=== PATIENT | male | born 1980 | race Caucasian/White ===

== ENCOUNTER 2021-11-25 11:55 | Emergency (ER) | payer MEDICAID, SELFPAY ==
[2021-11-25 11:55] VITALS: BP 160/108; PULSE 101; RESP 16; TEMP 35.9; O2SAT 98; BMI 44.6
--- NOTE | 2021-11-25 12:46 | EDS_ITS ---
HPI History of Present Illness Chief Complaint: Abscess Informant: patient Onset/Context/Timing Onset: Days (3) Context: Gradual Onset Timing: Continuous Quality: sore Location: left prox inner thigh Current Severity: Severe Maximum Severity: Severe Worsened by: sitting, palpation Relieved by: nothing Associated Symptoms Associated Symptoms: occ drainage, foul-smelling; no systemic sx Narrative Narrative: Patient with a tender swollen abscess that has been growing just for 3 days in his left proximal thigh, extremely tender and he has tried to pop it on his own but is unable. Never had these before. Healthy otherwise. No systemic symptoms or fevers. [facility] Medical History (Updated 11/25/21 @ 15:[address] MD) Hypertension Medical History no medical history no medical history Home Medications hydrocodone-acetaminophen 5-325mg 5mg-325mg 1 tab PO Q4H PRN PRN Pain 2 days #8 TABLETS 11/25/21 [Rx Last Taken Unknown] sulfamethoxazole 800 mg-trimethoprim 160 mg tablet 1 tab PO BID #20 TABLETS 11/25/21 [Rx Last Taken Unknown] Allergy/AdvReac Type Severity Reaction Status Date / Time Penicillins Allergy Hives Verified 11/25/21 11:58 Social History Smoking Status: Current every day smoker tobacco type: cigarettes ROS ROS ED Constitutional Constitutional ED: Denies chills or fever(s) Eyes Eyes: Denies change in vision or diplopia ENT ENT ED: Denies rhinorrhea or sore throat Cardiovascular Cardiovascular: Denies chest pain or palpitations Respiratory/Chest Respiratory/Chest: Denies cough or dyspnea Gastrointestinal Gastrointestinal: Denies abdominal pain, diarrhea, nausea or vomiting Genitourinary Genitourinary ED: Denies dysuria or hematuria Musculoskeletal Musculoskeletal: Denies back pain or neck pain Integumentary Reports abscess; Denies rash Neurologic Neurologic: Denies headache(s), paresthesias or weakness Psychiatric Psychiatric: Denies anxiety or suicidal thoughts EXAM Physical Exam Const Vital Signs: 11/25/21 11:55 11/25/21 13:03 11/25/21 13:03 Temperature 96.6 F L 97.9 F Temperature Source Temporal Pulse Rate 101 H 77 76 Respiratory Rate 16 16 16 Blood Pressure 160/108 H 131/89 H 131/89 H Blood Pressure Mean 125 103 Pulse Ox 98 95 96 Oxygen Delivery Method Room Air Room Air Room Air Positive well nourished and well developed General Appearance ED: well developed and NAD HEENT Reports moist mucous membranes normocephalic and atraumatic Eyes PERRL and EOMs intact bilaterally Neck full ROM and supple Resp normal respiratory effort and clear to auscultation bilaterally Cardio regular rate, regular rhythm and no murmurs GI non-tender and non-distended Auscultation: normoactive bowel sounds Palpation: soft Back/Spine no CVA tenderness General Back: other FROM Extremity normal to inspection General Extremety ED: Negative for edema, pulses abnormal or tenderness General Extremity: Negative for edema or pulses abnormal Neuro oriented x3, CN's II-XII intact bilaterally and no sensory deficits noted Sensorium / Orientation: awake and alert Motor Exam: strength 5/5 throughout Skin no rashes or lesions noted Skin Narrative: Large 10 cm diameter abscess left proximal medial thigh that does not involve the groin or scrotum, surrounding erythema, pointing, no spontaneous drainage at this time, extremely tender to palpation. MDM MDM MDM Narrative Medical decision making narrative: Patient wanted procedural sedation which I think is entirely reasonable given the size and location of this abscess. See the procedure note, this was uncomplicated, we obtained an excellent drainage, highly suspicious for MRSA given that this is only been 2 or 3 days and it was extremely large including the abscess cavity. He was started on Bactrim here and will be discharged with a prescription for that and something for pain, instructions to remove the gauze in 48 hours and return if worsening. He is comfortable with that plan. Procedures Procedural Sedation 1 (Initial Baseline): Consent Signed: Yes Any Problems With Anesthesia: No You/Your family experience fever (hyperthermia) w/anesthesia: No Sedation medication: Propofol Dose: 240 Route: IV Total Moderate Sedation Units: 15 Mallampati Score: Class III ASA Classification: I Comment:: Good sedation achieved, no complications tolerated well, monitored with end- tidal CO2, IV fluids, and oxygen throughout the procedure. Other Procedures Procedure(s): Complex incision and drainage abscess left buttock/thigh: Locally anesthetized with 3 cc of 1% plain lidocaine after procedural sedation started, prepped with chlorhexidine and isopropanol, incised centrally with a #11 blade, large amount of bloody purulent foul-smelling fluid expressed and suctioned, deloculated the cavity extensively, irrigated the cavity with saline, and packed with quarter inch gauze. Dressed with gauze, tolerated well under procedural sedation no complications. Discharge Plan Triage Chief Complaint: Abscess ED Provider: Julian Lane Dx/Rx/DC Orders Clinical Impression: Abscess and cellulitis of gluteal region Instructions: ED Abscess Incision And Drainage Prescriptions: New hydrocodone-acetaminophen [hydrocodone-acetaminophen] 5-325 mg tablet 1 tab PO Q4H PRN PRN (Reason: Pain) 2 Days Qty: 8 0RF sulfamethoxazole-trimethoprim [sulfamethoxazole-trimethoprim] 800-160 mg tablet 1 tab PO BID Qty: 20 0RF Primary Care Provider: Care Physician,No Primary Referrals: Osbaldo Peres MD [Med Staff - Active Staff] - 1 Week if not improving Care Physician,No Primary [Primary Care Provider] - Activity Restrictions/Additional Instructions: Dressing changes as needed, you cannot change dressing too much in order to cont inue drawing drainage out of the abscess. After about 48 hours, pull the wick out in its entirety and discard it. Afterwards, continue to do dressing changes until there is no bleeding or discharge. Take the antibiotics until they are completely gone, which should help to heal the rest of it. You may still feel a knot underneath the skin but the redness and pain should eventually resolve. Disposition Disposition: Home, Self Care
[2021-11-25] MEDS: Lidocaine 1% (20 ml mdv) 20 ML Vial INFILT (13:00)
[2021-11-25] MEDS: Propofol 200 MG/20 ML Vial IV BOLUS (13:00)
[2021-11-25] MEDS: Morphine 4 MG/ML Syringe IV ×2 (13:00→14:48)
[2021-11-25 13:03] VITALS: BP 131/89; PULSE 76; PULSE 77; RESP 16; TEMP 36.6; O2SAT 95; O2SAT 96
[2021-11-25 15:17] VITALS: BP 132/79; BP 139/72; BP 141/105; BP 145/98; BP 149/95; BP 151/87; BP 156/120; PULSE 72; PULSE 73; PULSE 75; PULSE 76; PULSE 77; PULSE 80; RESP 12; RESP 16; RESP 18; RESP 20; O2SAT 95; O2SAT 96; O2SAT 98; O2SAT 99
[2021-11-25 15:45] VITALS: BP 149/95; O2SAT 96
[2021-11-25 15:48] VITALS: BP 142/96; O2SAT 96
[2021-11-25] MEDS: Smz/Tmp Ds Tablet 1 TABLET PO (15:49)
--- NOTE | 2021-11-25 15:54 | ED.RN ---
Patient educated by 2 RNs that he absolutely cannot drive home due to the morpine and propofol give during his stay. pt. states his brother is coming to get him.
[2021-11-25 16:24] VITALS: PULSE 88; RESP 18; O2SAT 97
== END 2021-11-25 16:27 | disposition home or self-care (01) ==
PROVIDERS: Emergency Provider Emergency Medicine; Visit Provider Emergency Medicine
DX: L02.31 Cutaneous abscess of buttock (principal); L03.317 Cellulitis of buttock; F17.210 Nicotine dependence, cigarettes, uncomplicated
CPT/HCPCS: 10061; 96374; 96375; 99152; 99153; 99284; J7030; A4216

== ENCOUNTER 2021-12-18 18:30 | Emergency (ER) | payer MEDICAID, SELFPAY ==
[2021-12-18 18:31] VITALS: BP 184/124; PULSE 100; RESP 24; TEMP 35.7; BMI 45.7
--- NOTE | 2021-12-18 18:59 | CT_ITS ---
STUDY: CT Abdomen And Pelvis W/ Contrast Injection 12/18/2021 7:55 PM REASON FOR EXAM: Male, 41 years old. ABDOMINAL PAIN flank injury Technologist Notes Other, FELL OFF A LAWNMOWER 4 DAYS AGO,HAS SEVERE TAILBONE PAIN TECHNIQUE: Transaxial images were obtained without oral contrast, and with IV 100mL Isovue-370 intravenous contrast. Individualized dose optimization techniques were used for this CT. COMPARISON: None. FINDINGS: The visualized lung bases are unremarkable. The visualized portions of the heart are within normal limits. Unremarkable liver. Unremarkable gallbladder and extrahepatic biliary system. Unremarkable spleen. Unremarkable pancreas. Unremarkable bilateral adrenal glands. No acute findings of the right kidney. No acute findings of the left kidney. Unremarkable visualized stomach. Unremarkable small intestine. Unremarkable colon. The appendix is visualized and appears unremarkable. There are no acute findings of the abdominal aorta. Unremarkable inferior vena cava. Subcentimeter mesenteric lymph nodes. Unremarkable urinary bladder. There is an umbilical hernia containing fat. There are diffuse degenerative changes of the visualized lumbar spine. There are bilateral pars articularis defects at L5-S1. There is a Grade 1 anterolisthesis of L5 on S1. There is bilateral neural foraminal stenosis at L4-5 and L5-S1. CT/Abdomen/Pelvis W IV Cont ONLY IMPRESSION: (NOT LISTED IN ORDER OF SIGNIFICANCE) There are bilateral pars articularis defects at L5-S1. There is a Grade 1 anterolisthesis of L5 on S1. There is bilateral neural foraminal stenosis at L4-5 and L5-S1. Other findings as above. Electronically Signed: Dago Parrish MD at 19:57 EDT ,
--- NOTE | 2021-12-18 19:00 | EX.ED.GENINJ ---
HPI History of Present Illness Chief Complaint: Back Informant: patient Narrative Narrative: Reports right lower flank gluteal injury 4 days ago. He flipped off a riding lawn more right onto his buttocks. No head injuries. Reports pain down his legs. Symptoms are worsening after 4 days. No loss of bowel or bladder control. Denies history of similar. History of hypertension. Reported pain is significant and would not wish upon anybody. Prior similar symptoms: No PFSH PFSH Medical History Hypertension Home Medications hydrocodone-acetaminophen 5-325mg 5mg-325mg 1 tab PO Q4H PRN PRN Pain 2 days #8 TABLETS 11/25/21 [Rx Last Taken Unknown] sulfamethoxazole 800 mg-trimethoprim 160 mg tablet 1 tab PO BID #20 TABLETS 11/25/21 [Rx Last Taken Unknown] ibuprofen 600 mg tablet 600 mg PO 4X/DAY PRN Pain Or Fever #20 tabs 12/18/21 [Rx Last Taken Unknown] oxycodone-acetaminophen 5 mg-325 mg tablet (Percocet) 1 tab PO Q6H PRN pain 3 days #12 tabs 12/18/21 [Rx Last Taken Unknown] Allergy/AdvReac Type Severity Reaction Status Date / Time Penicillins Allergy Hives Verified 11/25/21 11:58 Social History Smoking Status: Current every day smoker tobacco type: cigarettes ROS ROS ED Constitutional Constitutional ED: Denies chills, fever(s) or sweats Eyes Eyes: Denies change in vision ENT ENT ED: Denies dysphagia or sore throat Cardiovascular Cardiovascular: Denies chest pain, leg edema, palpitations or racing heartbeat Respiratory/Chest Respiratory/Chest: Denies cough, dyspnea or dyspnea on exertion Gastrointestinal Gastrointestinal: Denies abdominal pain, diarrhea, nausea or vomiting Genitourinary Genitourinary ED: Denies dysuria, hematuria or urinary frequency Musculoskeletal Musculoskeletal: Reports back pain; Denies extremity pain or neck pain Integumentary Denies rash or wounds Neurologic Neurologic: Denies headache(s), paresthesias or weakness EXAM Physical Exam Const Vital Signs: 12/18/21 18:31 12/18/21 18:31 12/18/21 21:49 Temperature 96.3 F L 96.3 F L Temperature Source Temporal Temporal Pulse Rate 100 100 74 Respiratory Rate 24 H 24 H 16 Blood Pressure 184/124 H 184/124 H 175/125 H Blood Pressure Mean 144 144 Pulse Ox 95 Positive well nourished and well developed General Appearance ED: well developed and NAD HEENT Reports moist mucous membranes normocephalic and atraumatic Eyes PERRL, EOMs intact bilaterally and conjunctivae normal General Eye ED: Yes normal appearance of both eyes Neck no lymphadenopathy and supple General: Negative for tenderness Chest Wall Chest: Negative for tenderness Resp normal respiratory effort and normal air movement Effort and Inspection: symmetric chest movement; Negative for respiratory distress Cardio regular rate, regular rhythm and no murmurs Peripheral Pulses: pulses 2+ throughout GI normal to inspection, nondistended, normoactive bowel sounds and non-tender Palpation: Negative for guarding or rebound tenderness present Back/Spine Back/Spine Narrative: No midline tenderness or step-offs thoracic or lumbar. Tender deep palpation and right lower flank and gluteal region there is no ecchymosis. Skin intact. Straight leg test negative bilaterally. Extremity normal to inspection General Extremety ED: Negative for edema or tenderness General Extremity: Negative for edema Neuro oriented x3 and no sensory deficits noted Sensorium / Orientation: awake and alert Skin no rashes or lesions noted and no wounds MDM MDM MDM Narrative Medical decision making narrative: Patient fall off riding mower 4 days ago reports worsening pain with sciatica symptoms. He was walking the room. He had no cauda equina symptoms. With the mechanism concerns trauma scan obtained of the abdomen pelvis. There is no fractures however noted bilateral pars articularis defect of L5-S1 there is a grade 1 anterolisthesis of L5 on S1. There is foraminal stenosis of L4-L5 and L5-S1. Sciatica symptoms exacerbated due to his injuries. He was treated with fentanyl initially. Labs are stable. Discussed findings with the patient without this history. He is given follow-up with pain management along with spine as an outpatient. Prescription for ibuprofen and oxycodone written for symptom control. He is ambulating on reevaluation. All questions were answered. Lab Data Attestation: I reviewed the patient's lab results. Labs: Laboratory Results - last 24 hr 12/18/21 12/18/21 12/18/21 19:10 19:10 19:10 WBC 7.7 RBC 4.28 L Hgb 15.3 Hct 42.7 MCV 99.8 H MCH 35.7 H MCHC 35.8 RDW Std Deviation 44.3 H RDW Coeff of Kavitha 11.9 Plt Count 142 L MPV 10.9 Immature Gran % (Auto) 0.400 Neut % (Auto) 53.5 Lymph % (Auto) 35.9 [place] % (Auto) 6.9 Eos % (Auto) 2.9 Baso % (Auto) 0.4 Absolute Neuts (auto) 4.1 Absolute Lymphs (auto) 2.75 Nucleated RBC % 0 PT 12.6 INR 1.0 APTT 30.0 Sodium 138 Potassium 4.3 Chloride 106 Carbon Dioxide 29.0 Anion Gap 3 L BUN 16 Creatinine 0.86 Estim Creat Clear Calc 120.39 Est GFR (MDRD) Af Amer 126 Est GFR (MDRD) Non-Af 104 BUN/Creatinine Ratio 18.7 Glucose 155 H Calcium 9.9 Radiography Diagnostic Testing: Clinical Impression(s) from Imaging Studies Abdomen/Pelvis CT 12/18/21 18:59 IMPRESSION: (NOT LISTED IN ORDER OF SIGNIFICANCE) There are bilateral pars articularis defects at L5-S1. There is a Grade 1 anterolisthesis of L5 on S1. There is bilateral neural foraminal stenosis at L4-5 and L5-S1. Other findings as above. Electronically Signed: Dago Parrish MD at 19:57 EDT Reading Location ID and State: [facility]– [place] / [place] , Service support , Discharge Plan Triage Chief Complaint: Back ED Provider: Rafy Elaine Dx/Rx/DC Orders Clinical Impression: Acute right-sided back pain with sciatica, Contusion of flank, Back injury, Spondylolisthesis at L5-S1 level Instructions: ED Back Contusion, ED Sciatica Prescriptions: New oxycodone-acetaminophen [Percocet] 5-325 mg tablet 1 tab PO Q6H PRN (Reason: pain) 3 Days Qty: 12 0RF ibuprofen 600 mg tablet 600 mg PO 4X/DAY PRN (Reason: Pain Or Fever) Qty: 20 0RF No Action hydrocodone-acetaminophen [hydrocodone-acetaminophen] 5-325 mg tablet 1 tab PO Q4H PRN PRN (Reason: Pain) 2 Days Qty: 8 0RF sulfamethoxazole-trimethoprim [sulfamethoxazole-trimethoprim] 800-160 mg tablet 1 tab PO BID Qty: 20 0RF Primary Care Provider: Care Physician,No Primary Referrals: Joseph Grijalva MD [Med Staff - Active Staff] - 1 Week Miguel Forte DO [Med Staff - Active Staff] - 1-2 Weeks Care Physician,No Primary [Primary Care Provider] - Activity Restrictions/Additional Instructions: lumbar spinal stenosis seen with sciatica symptoms. Spondylolisthesis L5-S1. Bilateral pars defect noted on CT. Follow-up as an outpatient. Disposition Disposition: Home, Self Care Discharge Date/Time: 12/18/21 21:52
[2021-12-18] MEDS: fentaNYL 100 MCG/2 ML Ampul 50 MCG IV (19:17)
[2021-12-18 19:27] LABS: Absolute Lymphocyte Count 2.75 X10^3/uL (0.83-4.51); Absolute Neutrophil Count 4.1 X10^3/uL (2.0-7.7); Basophil# 0.03 X10^3/uL; Basophil% 0.4 % (0-1); Eosinophil# 0.22 X10^3/uL; Eosinophils% 2.9 % (0-5); Hematocrit 42.7 % (40-54); Hemoglobin 15.3 g/dL (13.0-16.5); Lymphocyte # 2.75 X10^3/ul (0.83-4.51); Lymphocyte % 35.9 % (19-41); Mean Corp Hgb Conc 35.8 g/dL (32-36); Mean Corpuscular Hgb 35.7 pg (27.0-32.0); Mean Corpuscular Volume 99.8 fL (80-94); Mean Platelet Vol. 10.9 fl (6.2-12.0); Monocyte# 0.53 X10^3/uL; Monocyte% 6.9 % (0-10); NRBC Flagged by Analyzer 0 % (0-5); Neutrophil % 53.5 % (47-70); Platelet Count 142 K/mm3 (150-450); RBC Distribution Width CV 11.9 % (11.6-14.6); RBC Distribution Width SD 44.3 fl (35.1-43.9); Red Blood Count 4.28 M/mm3 (4.6-6.2); White Blood Count 7.7 K/mm3 (4.4-11.0)
[2021-12-18 19:37] LABS: Prothrombin Time (Protime)PT. 12.6 SECONDS (11.7-14.9)
[2021-12-18 19:39] LABS: Anion Gap 3 (5-15); BUN 16 mg/dL (7-18); BUN/Creat Ratio 18.7 RATIO (10-20); Calcium,Total 9.9 mg/dL (8.5-10.1); Chloride 106 mmol/L (98-107); Creatinine, Serum 0.86 mg/dL (0.70-1.30); EST Glomerular Filtration Rate 104 mL/min (>60); Est Glom Filt Rate - Afr Amer 126 mL/min (>60); Estimated Creatinine Clearance 120.39 ml/min; Glucose 155 mg/dL (74-106); Potassium 4.3 mmol/L (3.5-5.1); Sodium Level 138 mmol/L (136-145)
[2021-12-18 21:49] VITALS: BP 175/125; PULSE 74; RESP 16; O2SAT 95
== END 2021-12-18 21:52 | disposition home or self-care (01) ==
PROVIDERS: Emergency Provider Emergency Medicine; Visit Provider Emergency Medicine
DX: S30.0XXA Contusion of lower back and pelvis, initial encounter (principal); X58.XXXA Exposure to other specified factors, initial encounter; M48.061 Spinal stenosis, lumbar region without neurogenic claudication; M43.17 Spondylolisthesis, lumbosacral region; M54.41 Lumbago with sciatica, right side; F17.210 Nicotine dependence, cigarettes, uncomplicated
CPT/HCPCS: 74177; 80048; 85025; 85610; 85730; 96361; 96374; 99283; J7040; Q9967; A4216